=== PATIENT | male | born 1995 | race Caucasian/White ===

== ENCOUNTER 2019-06-08 21:54 | Emergency (ER) | payer OTHER ==
[~2019-06-08] VITALS: Ht 170.2 cm; Wt 100.0 kg
[2019-06-08] MEDS ORDERED: IBUPROFEN 400MG TABLET PO ONE (23:30)
[2019-06-08] MEDS ORDERED: TETANUS, DIPHTHERIA, PERTUSSIS VAC/PF 0.5ML (>7YR OLD) IM ONE (23:30)
[2019-06-09] MEDS ORDERED: BACITRACIN ZINC OINT UDPKT TOP ONE (01:00)
[2019-06-09] MEDS ORDERED: LIDOCAINE 1%/EPI 1:100,000 10 ML VIAL IJ ONE (01:00)
[2019-06-09] MEDS ORDERED: LIDOCAINE HCL/EPINEPHRINE 1%-EPI 1:100,000 20 ML VIAL INFIL SCH (01:15)
[2019-06-09 03:21] VITALS: BP 150/81
== END 2019-06-09 03:26 | disposition home or self-care (01) ==
LOC: ER 21:54
DX: S01.112A Laceration without foreign body of left eyelid and periocular area, initial encounter (principal); E11.9 Type 2 diabetes mellitus without complications; I10 Essential (primary) hypertension; R55 Syncope and collapse; Y04.0XXA Assault by unarmed brawl or fight, initial encounter; Y93.89 Activity, other specified; Y92.89 Other specified places as the place of occurrence of the external cause; Y99.8 Other external cause status
CPT/HCPCS: 70450; 70480; 82962; 90471; 90715; 99284; J3490; Z7610